=== PATIENT | female | born 1935 | race Caucasian/White ===

== ENCOUNTER 2017-07-03 13:14 | Emergency (ER) | payer MEDICARE, OTHER, MEDICAID ==
[~2017-07-03] VITALS: Ht 152.4 cm; Wt 74.8 kg
[~2017-07-03 13:14] MED LIST: AC500T PO; BSC10SU PR; CALC1TAB88 PO; CEFD300C3 PO; CEFU250T11 PO; CLC500CT PO; CRAN200C PO; Cranberry Extract PO; FEXO180T PO; FURO40TA4 PO; HYDR-34 PO; KCL20TCR PO; KETO5DRO2 OU; LEVO750T24 GT; LISI20TA PO; MAGN-77 PO; MENT71OI TP; MULT-1029 PO; MULT-166 PO; NF-ESOM40C PO; NF-TYLARTH PO; OMEG1200 PO; OMG1KC PO; ONDN4T PO; POTA20TA15 PO; SCR1T1 PO; SENN1TAB76 PO; SUCR1TAB PO; TRAM50TA2 PO; VIT1CAPS5 PO; VITA200T7 PO
--- NOTE | 2017-07-03 14:21 | ED General ---
General Chief Complaint: Rect Problems Stated Complaint: WEAKNESS AND BLEEDING, POSS HEMORRHOID Nursing Triage Note: c/o rectal bleeding x 3 days. Reports weakness and weight loss. Hx of hemorrhoids. Nursing Sepsis Screen: No Definite Risk Source of Information: Patient, Family Exam Limitations: No Limitations History of Present Illness Time Seen by Provider: 13:30 Initial Comments 82-year-old female patient presents to the emergency department for complaints of 3 day onset of rectal bleeding. Today feels weak. Patient also reports approximately 60-70 pound weight loss over the last 2 years. Daughter reports patient has had decreased appetite for approximately 2 years. Does have a h/o hemorrhoids. Denies n/v/d, constipation, or abdominal pain. Timing/Duration: 2-3 Days, Constant Modifying Factors: worse with Other (worse with having a BM.) Allergies and Home Medications Allergies Coded Allergies: Sulfa (Sulfonamide Antibiotics) (Verified Allergy, Severe, RASH, 09/24/14) codeine (Verified Adverse Reaction, Mild, NAUSEA, 09/24/14) PATIENT REPORTS TAKING AT 18 YEARS OF AGE AND CAUSING NAUSEA. aspirin (Verified Adverse Reaction, Unknown, STOMACH ULCERS, 09/24/14) Home Medications Acetaminophen 650 Mg Cplt, 1,300 MG PO Q8H PRN for PAIN, (Reported) TAKES 2 (650MG) CAPSULE Calcium Carbonate/Vitamin D3 1 Each Tablet, 1 TAB PO BID, (Reported) Cefdinir 300 Mg Capsule, 300 MG PO BID, #20 Ref 0 Prescribed by: JENNIFFER PAULSON on 05/09/16 1219 Cephalexin 500 Mg Capsule, 500 MG PO TID, #15 Ref 0 Prescribed by: GIUSEPPE MORRIS on 07/04/1755 Esomeprazole Mag Trihydrate 40 Mg Capsule.dr, 40 MG PO DAILY, (Reported) Fexofenadine Hcl 180 Mg Tablet, 180 MG PO DAILY PRN for ALLERGY SYMPTOMS, ( Reported) NEEDED FOR ALLERGY SYMPTOMS Furosemide 40 Mg Tablet, 40 MG PO DAILY, (Reported) Hydrocortisone/Pramoxine 30 Gm Cream.appl, 30 GM RC UD, #1 Ref 0 apply to hemorrhoids QID x7-10d Prescribed by: GIUSEPPE MORRIS on 07/04/1755 Lisinopril 20 Mg Tablet, 20 MG PO DAILY, (Reported) Mu-Vits-Min Th/Lycopene/Lutein 1 Each Tablet, 1 TAB PO DAILY, (Reported) [place]-3/Dha/Epa/Fish Oil 1,200 Mg Capsule, 1,200 MG PO BID, (Reported) Ondansetron Hcl 4 Mg Tab, 4 MG PO Q8H PRN for NAUSEA/VOMITING, (Reported) Sucralfate 1 G Tablet, 1 GM PO QID, (Reported) Tramadol Hcl 50 Mg Tab, 50 MG PO Q6H PRN for PAIN, (Reported) Vit A/Vit C/Vit E/Zinc/Copper 1 Each Capsule, 1 CAP PO BID, (Reported) [Cranberry Extract] , 300 MG PO DAILY, (Reported) Constitutional: see HPI, No chills, No diaphoresis, No fever, weakness ( fatigue and generalized weakness.), weight loss EENTM: no symptoms reported Respiratory: No cough, No dyspnea on exertion, No phlegm, No short of breath Cardiovascular: No chest pain, No palpitations, No syncope Gastrointestinal: No abdominal pain, No constipation, No diarrhea, No hematemesis, No heartburn, loss of appetite, No melena, No nausea, No vomiting Genitourinary: No decreased output, No dysuria, No frequency, No hematuria, No pain Musculoskeletal: no symptoms reported Skin: no symptoms reported Psychiatric/Neurological: Denies Headache, Denies Numbness, Denies Paresthesia , Denies Tingling, Denies Weakness All Other Systems Reviewed Negative Unless Noted: Yes (Negative excepted noted.) Past Pwbvxmr-Tptods-Gwnnsr Hx Patient Social History Alcohol Use: Denies Use Recreational Drug Use: No Smoking Status: Never a Smoker Recent Foreign Travel: No Contact w/Someone Who Travel: No Recent Infectious Disease Expo: No Recent Hopitalizations: No Immunizations Up To Date Date of Pneumonia Vaccine: Jul 02, 2014 Date of Influenza Vaccine: Jun 29, 2014 Surgeries History of Surgeries: Yes (Bilateral knees, CYST REMOVAL FROM BACK ) Surgeries: Appendectomy, Gallbladder, Orthopedic Respiratory History of Respiratory Disorde: Yes Respiratory Disorders: Chronic Bronchitis Cardiovascular History of Cardiac Disorders: Yes Cardiac Disorders: Hypertension Neurological History of Neurological Disord: No Reproductive System Hx Reproductive Disorders: Yes (RH(-) X2 BABIES THAT PASSED ONE STILLBIRTH AND ONE PASSED 24HRS OLD) Sexually Transmitted Disease: No HIV/AIDS: No Female Reproductive Disorders: Denies Genitourinary Genitourinary Disorders: Kidney Infection Gastrointestinal History of Gastrointestinal Di: Yes (Hernia; diverticulitis; stomach ulcers) Gastrointestinal Disorders: Chronic Constipation, Diverticulosis Musculoskeletal History of Musculoskeletal Dis: Yes Musculoskeletal Disorders: Arthritis, Fractures Endocrine History of Endocrine Disorders: No HEENT HEENT Disorders: Cataract, Macular Degeneration Loss of Vision: Bilateral Hearing Impairment: Denies Cancer History of Cancer: No Psychosocial History of Psychiatric Problem: No Behavioral Health Disorders: Anxiety, Depression Integumentary History of Skin or Integumenta: No Blood Transfusions History of Blood Disorders: No Adverse Reaction to a Blood Tr: No Reviewed Nursing Assessment Reviewed/Agree w Nursing PMH: Yes Family Medical History Significant Family History: No Pertinent Family Hx Family Medial History: Cancer 03 MOTHER (LUNG CANCER) Cataract 03 MOTHER (MACULAR DEGENERATION) Family history: Arthritis Family history: Hypertension 09 BROTHER (OLDEST BROTHER) Visual impairment 03 MOTHER (CATARACTS AND MACULAR DEGENERATION) No Family History of: Abdominal aortic aneurysm [place]'s disease Alcoholism Aphasia Cancer of colon Chest pain Congenital heart disease Congestive heart failure Cystic fibrosis Dementia Dysphagia Family history: Allergy Family history: Alzheimer's disease Family history: Asthma Family history: Breast disease Family history: Cardiovascular disease Family history: Coronary thrombosis Family history: Diabetes mellitus Family history: Gastrointestinal disease Family history: Glaucoma Family history: Osteoporosis Family history: Thyroid disorder Headache Hearing loss Heart disease Hereditary disease History of - anemia History of - disorder History of - respiratory disease History of drug abuse Human immunodeficiency virus (HIV) seropositivity Hypercholesterolemia Infertile Kidney disease Malignant neoplasm of lung Myocardial infarction Parkinson's disease Prostate cancer Psychotic disorder Seizure disorder Stroke Tuberculosis Physical Exam Vital Signs Vital Sign - Last 12Hours 07/03/17 13:37 Temp 98.1 Pulse 66 Resp 18 B/P (MAP) 125/61 Pulse Ox 95 O2 Delivery Room Air Capillary Refill : Less Than 3 Seconds General Appearance: No Apparent Distress, WD/WN HEENT: PERRL/EOMI, Pharynx Normal, Other (oral mucosa dry) Neck: Normal Inspection, Supple Respiratory: Lungs Clear, Normal Breath Sounds, No Accessory Muscle Use, No Respiratory Distress Cardiovascular: Regular Rate, Rhythm, No Edema, No Murmur, Normal Peripheral Pulses Gastrointestinal: Normal Bowel Sounds, No Organomegaly, Non Tender, Soft, No Distended Rectal: Normal Rectal Tone, Heme Positive Stool, Hemorrhoids Back: Normal Inspection, No CVA Tenderness Extremity: Normal Capillary Refill, No Calf Tenderness, Pedal Edema (2+ pedal edema bilaterally to the proximal tibia) Neurologic/Psychiatric: Alert, Oriented x3, Normal Mood/Affect Skin: Normal Color, Warm/Dry Progress/Results/Core Measures Results/Orders Lab Results Laboratory Tests Test 07/03/17 14:20 07/03/17 16:24 Range/Units White Blood Count 7.8 4.3-11.0 10^3/uL Red Blood Count 3.37 L 4.35-5.85 10^6/uL Hemoglobin 10.6 L 11.5-16.0 G/DL Hematocrit 32 L 35-52 % Mean Corpuscular Volume 96 80-99 FL Mean Corpuscular Hemoglobin 32 25-34 PG Mean Corpuscular Hemoglobin Concent 33 32-36 G/DL Red Cell Distribution Width 16.0 H 10.0-14.5 % Platelet Count 247 130-400 10^3/uL Mean Platelet Volume 9.4 7.4-10.4 FL Neutrophils (%) (Auto) 66 42-75 % Lymphocytes (%) (Auto) 20 12-44 % Monocytes (%) (Auto) 8 0-12 % Eosinophils (%) (Auto) 6 0-10 % Basophils (%) (Auto) 1 0-10 % Neutrophils # (Auto) 5.1 1.8-7.8 X 10^3 Lymphocytes # (Auto) 1.6 1.0-4.0 X 10^3 Monocytes # (Auto) 0.6 0.0-1.0 X 10^3 Eosinophils # (Auto) 0.5 H 0.0-0.3 10^3/uL Basophils # (Auto) 0.1 0.0-0.1 10^3/uL Prothrombin Time 13.0 12.2-14.7 SEC INR Comment 1.0 0.8-1.4 Activated Partial Thromboplast Time 38 H 24-35 SEC Sodium Level 136 135-145 MMOL/L Potassium Level 4.9 3.6-5.0 MMOL/L Chloride Level 113 H 98-107 MMOL/L Carbon Dioxide Level 16 L 21-32 MMOL/L Anion Gap 7 5-14 MMOL/L Blood Urea Nitrogen 59 H 7-18 MG/DL Creatinine 1.80 H 0.60-1.30 MG/DL Estimat Glomerular Filtration Rate 27 BUN/Creatinine Ratio 33 Glucose Level 94 70-105 MG/DL Calcium Level 8.8 8.5-10.1 MG/DL Total Bilirubin 0.2 0.1-1.0 MG/DL Aspartate Amino Transf (AST/SGOT) 18 5-34 U/L Alanine Aminotransferase (ALT/SGPT) 16 0-55 U/L Alkaline Phosphatase 64 40-136 U/L Total Protein 5.6 L 6.4-8.2 GM/DL Albumin 2.9 L 3.2-4.5 GM/DL Urine Color RED H Urine Clarity VERY CLOUDY H Urine pH 5 5-9 Urine Specific [place] 1.015 L 1.016-1.022 Urine Protein 2+ H NEGATIVE Urine Glucose (UA) NEGATIVE NEGATIVE Urine Ketones NEGATIVE NEGATIVE Urine Nitrite NEGATIVE NEGATIVE Urine Bilirubin NEGATIVE NEGATIVE Urine Urobilinogen NORMAL NORMAL MG/DL Urine Leukocyte Esterase 2+ H NEGATIVE Urine RBC (Auto) 5+ H NEGATIVE Urine RBC TNTC H /HPF Urine WBC 5-10 H /HPF Urine Crystals NONE /LPF Urine Bacteria FEW H /HPF Urine Casts NONE /LPF Urine Mucus NEGATIVE /LPF Urine Culture Indicated YES My Orders Orders - GIUSEPPE MORRIS Cbc With Automated Diff (07/03/17 13:44) Comprehensive Metabolic Panel (07/03/17 13:44) Protime With Inr (07/03/17 13:44) Partial Thromboplastin Time (07/03/17 13:44) Saline Lock/Iv-Start (07/03/17 13:44) Ns Iv 1000 Ml (Sodium Chloride 0.9%) (07/03/17 14:50) Ua Culture If Indicated (07/03/17 15:06) Fecal Occult Bedside (07/03/17 15:18) General/Regular (07/03/17 Dinner) Urine Culture (07/03/17 16:24) Medications Given in ED Current Medications Medications Dose Ordered Sig/Uniuqe Route Start Time Stop Time Status Last Admin Dose Admin Sodium Chloride 1,000 ml @ 0 mls/hr Q0M ONCE IV 07/03/17 14:50 07/03/17 14:51 DC 07/03/17 15:22 0 MLS/HR Vital Signs/I&O Vital Sign - Last 12Hours 07/03/17 07/03/17 13:37 17:20 Temp 98.1 98.1 Pulse 66 68 Resp 18 16 B/P (MAP) 125/61 Pulse Ox 95 95 O2 Delivery Room Air Blood Pressure Mean: 82 Departure Communication (Admissions) Progress Notes All laboratory findings discussed with the patient and family. Patient reports better with IV fluids. Patient was recently started on Mobic 15 mg once daily and Mobic 7.5 mg once daily by Dr. Garcia approximately 2 wks ago. Daughter reports noticing symptoms have gotten worse since starting the mobic. Patient does have a history of upper GI bleed and gastric ulcers. Patient is not able to use motrin or aleve due to GI upset and poor appetite. plan for discontinuing mobic and using tylenol for pain. Impression Impression: Primary Impression: Rectal bleeding Additional Impressions: Hemorrhoids Qualified Codes: K64.9 - Unspecified hemorrhoids Volume depletion Urinary tract infection Qualified Codes: N30.00 - Acute cystitis without hematuria Disposition: HOME, SELF-CARE Condition: Improved Departure-Patient Inst. Decision time for Depature: 15:56 Referrals: ALBAN HERNANDEZ FLOYD R MD (PCP/Family) Primary Care Physician Patient Instructions: Hemorrhoids (DC) Add. Discharge Instructions: All discharge instructions reviewed with patient and/or family. Voiced understanding. Medications as directed. Drink plenty of fluids. Colace stool softeners as needed for constipation. Keep stools on the softer side. Follow- up with Dr. Garcia tomorrow as previously scheduled for a recheck and repeat labs. Follow-up with Dr. Hernandez as an outpatient for possible need of a colonoscopy. Return to the emergency department for worsened bleeding, rectal pain, fever, dizziness, shortness of air, vomiting, vomiting blood, or any other concerns. Scripts Cephalexin (Cephalexin) 500 Mg Capsule 500 MG PO TID, #15 CAP 0 Refills Prov: GIUSEPPE MORRIS 07/04/17 Hydrocortisone/Pramoxine (Analpram Hc 2.5% Cream) 30 Gm Cream.appl 30 GM RC UD, #1 APPLIC 0 Refills apply to hemorrhoids QID x7-10d Prov: GIUSEPPE MORRIS 07/04/17 GIUSEPPE MORRIS Jul 03, 2017 14:20
[2017-07-03 14:30] LABS: BASOPHILS # (AUTO) 0.1 10^3/uL (0.0-0.1); BASOPHILS % (AUTO) 1 % (0-10); EOSINOPHILS # (AUTO) 0.5 10^3/uL (0.0-0.3); EOSINOPHILS % (AUTO) 6 % (0-10); LYMPHOCYTES # (AUTO) 1.6 X 10^3 (1.0-4.0); LYMPHOCYTES % (AUTO) 20 % (12-44); MEAN CORPUSCULAR HEMOGLOBIN 32 PG (25-34); MEAN CORPUSCULAR HGB CONC 33 G/DL (32-36); MEAN CORPUSCULAR VOLUME 96 FL (80-99); MEAN PLATELET VOLUME 9.4 FL (7.4-10.4); MONOCYTES # (AUTO) 0.6 X 10^3 (0.0-1.0); MONOCYTES % (AUTO) 8 % (0-12); NEUTROPHILS # (AUTO) 5.1 X 10^3 (1.8-7.8); NEUTROPHILS % (AUTO) 66 % (42-75); PLATELET COUNT 247 10^3/uL (130-400); RED BLOOD COUNT 3.37 10^6/uL (4.35-5.85); WHITE BLOOD COUNT 7.8 10^3/uL (4.3-11.0)
[2017-07-03 14:48] LABS: ALBUMIN 2.9 GM/DL (3.2-4.5); BILIRUBIN,TOTAL 0.2 MG/DL (0.1-1.0); CALCIUM 8.8 MG/DL (8.5-10.1); CREATININE SERUM 1.8 MG/DL (0.60-1.30); POTASSIUM 4.9 MMOL/L (3.6-5.0); TOTAL PROTEIN 5.6 GM/DL (6.4-8.2)
[2017-07-03] MEDS ORDERED: NS IV 1000 ML 1,000 ML IV ONE (14:50)
[2017-07-03] MEDS ORDERED: HC A30CR RC (15:58)
[2017-07-03 16:32] LABS: BILIRUBIN,URINE NEGATIVE (NEGATIVE); KETONES,URINE NEGATIVE (NEGATIVE); LEUKOCYTE ESTERASE ,URINE 2+ (NEGATIVE); NITRITE,URINE NEGATIVE (NEGATIVE); PH,URINE 5 (5-9); PROTEIN,URINE 2+ (NEGATIVE); UROBILINOGEN,URINE NORMAL (NORMAL)
[2017-07-03] MEDS ORDERED: CEPH500C PO (16:46)
[2017-07-03 17:20] VITALS: BP 126/70
[2017-07-04] MEDS ORDERED: HC A30CR RC (00:56)
[2017-07-04] MEDS ORDERED: CEPH500C PO (00:56)
== END 2017-07-03 17:20 | disposition home or self-care (01) ==
LOC: EDUNIT# 13:14 → ER 13:16
DX: K62.5 Hemorrhage of anus and rectum (principal); K64.9 Unspecified hemorrhoids; E86.9 Volume depletion, unspecified; N39.0 Urinary tract infection, site not specified; F41.9 Anxiety disorder, unspecified; F32.9 Major depressive disorder, single episode, unspecified; I10 Essential (primary) hypertension; Z85.118 Personal history of other malignant neoplasm of bronchus and lung; Z87.81 Personal history of (healed) traumatic fracture; Z90.49 Acquired absence of other specified parts of digestive tract
CPT/HCPCS: 36415; 80053; 81000; 85025; 85610; 85730; 87077; 87088; 87186

== ENCOUNTER 2017-07-15 14:40 | Emergency (ER) | payer MEDICARE, OTHER, MEDICAID ==
[~2017-07-15] VITALS: Ht 152.4 cm; Wt 73.5 kg
[~2017-07-15 14:40] MED LIST changes: +CEPH500C PO; +HC A30CR RC
[2017-07-15 15:46] LABS: BILIRUBIN,URINE NEGATIVE (NEGATIVE); KETONES,URINE NEGATIVE (NEGATIVE); LEUKOCYTE ESTERASE ,URINE 2+ (NEGATIVE); NITRITE,URINE NEGATIVE (NEGATIVE); PH,URINE 5 (5-9); PROTEIN,URINE 2+ (NEGATIVE); UROBILINOGEN,URINE NORMAL (NORMAL)
[2017-07-15] MEDS ORDERED: NS IV 1000 ML 1,000 ML IV SCH (16:00)
--- NOTE | 2017-07-15 16:07 | ED GU-Female ---
General Chief Complaint: -Female Stated Complaint: KIDNEY ISSUES Nursing Triage Note: ARRIVED VIA WC TO ROOM 02. COMPLAINS OF FEELING LIKE SHE NEEDS TO GO TO THE BATHROOM BUT CANT. STATES SHE CALLED HER DR WHO PRESCRIBED HER PYRIDIUM. HAS A HX OF UTI'S. Nursing Sepsis Screen: No Definite Risk Source: patient, family Exam Limitations: no limitations History of Present Illness Time seen by provider: 16:02 Initial Comments This 82-year-old white female presents with a complaint of recurrent dysuria. The patient has had long-standing episodes of resistant urinary tract infections. Patient has been having chills with her dysuria. She denies flank pain, nausea , vomiting, headache, stiff neck, photophobia, palpitations or chest pain, or lateralizing localizing neurologic complaints. Allergies and Home Medications Allergies Coded Allergies: Sulfa (Sulfonamide Antibiotics) (Verified Allergy, Severe, RASH, 09/24/14) codeine (Verified Adverse Reaction, Mild, NAUSEA, 09/24/14) PATIENT REPORTS TAKING AT 16 YEARS OF AGE AND CAUSING NAUSEA. aspirin (Verified Adverse Reaction, Unknown, STOMACH ULCERS, 09/24/14) Home Medications Acetaminophen 650 Mg Cplt, 1,300 MG PO Q8H PRN for PAIN, (Reported) TAKES 2 (650MG) CAPSULE Calcium Carbonate/Vitamin D3 1 Each Tablet, 1 TAB PO BID, (Reported) Cefdinir 300 Mg Capsule, 300 MG PO BID, #20 Ref 0 Prescribed by: JENNIFFER PAULSON on 05/09/16 1219 Cephalexin 500 Mg Capsule, 500 MG PO TID, #15 Ref 0 Prescribed by: GIUSEPPE MORRIS on 07/04/17 005 Esomeprazole Mag Trihydrate 40 Mg Capsule.dr, 40 MG PO DAILY, (Reported) Fexofenadine Hcl 180 Mg Tablet, 180 MG PO DAILY PRN for ALLERGY SYMPTOMS, ( Reported) NEEDED FOR ALLERGY SYMPTOMS Furosemide 40 Mg Tablet, 40 MG PO DAILY, (Reported) Hydrocortisone/Pramoxine 30 Gm Cream.appl, 30 GM RC UD, #1 Ref 0 apply to hemorrhoids QID x7-10d Prescribed by: GIUSEPPE MORRIS on 07/04/1755 Lisinopril 20 Mg Tablet, 20 MG PO DAILY, (Reported) Mu-Vits-Min Th/Lycopene/Lutein 1 Each Tablet, 1 TAB PO DAILY, (Reported) [place]-3/Dha/Epa/Fish Oil 1,200 Mg Capsule, 1,200 MG PO BID, (Reported) Ondansetron Hcl 4 Mg Tab, 4 MG PO Q8H PRN for NAUSEA/VOMITING, (Reported) Sucralfate 1 G Tablet, 1 GM PO QID, (Reported) Tramadol Hcl 50 Mg Tab, 50 MG PO Q6H PRN for PAIN, (Reported) Vit A/Vit C/Vit E/Zinc/Copper 1 Each Capsule, 1 CAP PO BID, (Reported) [Cranberry Extract] , 300 MG PO DAILY, (Reported) Constitutional: chills, No fever EENTM: No ear pain Respiratory: No cough Cardiovascular: No chest pain Gastrointestinal: no symptoms reported Genitourinary: no symptoms reported, burning, dysuria Musculoskeletal: No no symptoms reported Skin: No no symptoms reported Psychiatric/Neurological: Denies No Symptoms Reported Endocrine: Denies No Symptoms Reported Hematologic/Lymphatic: Denies No Symptoms Reported Past Cnzbbla-Vtsznz-Cnthan Hx Patient Social History Alcohol Use: Denies Use Recreational Drug Use: No Smoking Status: Never a Smoker Recent Foreign Travel: No Contact w/Someone Who Travel: No Recent Infectious Disease Expo: No Recent Hopitalizations: No Immunizations Up To Date Date of Pneumonia Vaccine: Jul 02, 2014 Date of Influenza Vaccine: Jun 29, 2014 Surgeries History of Surgeries: Yes (Bilateral knees, CYST REMOVAL FROM BACK ) Surgeries: Appendectomy, Gallbladder, Orthopedic Respiratory History of Respiratory Disorde: Yes Respiratory Disorders: Chronic Bronchitis Cardiovascular History of Cardiac Disorders: Yes Cardiac Disorders: Hypertension Neurological History of Neurological Disord: No Reproductive System Hx Reproductive Disorders: Yes (RH(-) X2 BABIES THAT PASSED ONE STILLBIRTH AND ONE PASSED 24HRS OLD) Sexually Transmitted Disease: No HIV/AIDS: No Female Reproductive Disorders: Denies Genitourinary Genitourinary Disorders: Kidney Infection Gastrointestinal History of Gastrointestinal Di: Yes (Hernia; diverticulitis; stomach ulcers) Gastrointestinal Disorders: Chronic Constipation, Diverticulosis Musculoskeletal History of Musculoskeletal Dis: Yes Musculoskeletal Disorders: Arthritis, Fractures Endocrine History of Endocrine Disorders: No HEENT HEENT Disorders: Cataract, Macular Degeneration Loss of Vision: Bilateral Hearing Impairment: Denies Cancer History of Cancer: No Psychosocial History of Psychiatric Problem: No Behavioral Health Disorders: Anxiety, Depression Integumentary History of Skin or Integumenta: No Blood Transfusions History of Blood Disorders: No Adverse Reaction to a Blood Tr: No Reviewed Nursing Assessment Reviewed/Agree w Nursing PMH: Yes Family Medical History Significant Family History: No Pertinent Family Hx Family Medial History: Cancer 03 MOTHER (LUNG CANCER) Cataract 03 MOTHER (MACULAR DEGENERATION) Family history: Arthritis Family history: Hypertension 09 BROTHER (OLDEST BROTHER) Visual impairment 03 MOTHER (CATARACTS AND MACULAR DEGENERATION) No Family History of: Abdominal aortic aneurysm [place]'s disease Alcoholism Aphasia Cancer of colon Chest pain Congenital heart disease Congestive heart failure Cystic fibrosis Dementia Dysphagia Family history: Allergy Family history: Alzheimer's disease Family history: Asthma Family history: Breast disease Family history: Cardiovascular disease Family history: Coronary thrombosis Family history: Diabetes mellitus Family history: Gastrointestinal disease Family history: Glaucoma Family history: Osteoporosis Family history: Thyroid disorder Headache Hearing loss Heart disease Hereditary disease History of - anemia History of - disorder History of - respiratory disease History of drug abuse Human immunodeficiency virus (HIV) seropositivity Hypercholesterolemia Infertile Kidney disease Malignant neoplasm of lung Myocardial infarction Parkinson's disease Prostate cancer Psychotic disorder Seizure disorder Stroke Tuberculosis Physical Exam Vital Signs Vital Sign - Last 12Hours 07/15/17 14:50 Temp 97.0 Pulse 69 Resp 18 B/P (MAP) 100/48 Pulse Ox 98 Capillary Refill : Less Than 3 Seconds General Appearance: WD/WN, no apparent distress HEENT: PERRL/EOMI, normal ENT inspection Neck: full range of motion, supple Cardiovascular: regular rate, rhythm, no murmur Respiratory: chest non-tender, lungs clear, normal breath sounds Gastrointestinal: normal bowel sounds, non tender, soft Back: normal inspection Extremities: normal range of motion, non-tender, normal inspection Neurologic/Psychiatric: no motor/sensory deficits, alert, normal mood/affect Skin: normal color, warm/dry Focused Exam Evaluation Lactate Level Laboratory Tests 07/15/17 14:20: Lactic Acid Level 0.68 Lactic Acid Level Laboratory Tests Test 07/15/17 14:20 Lactic Acid Level 0.68 MMOL/L (0.50-2.00) Progress/Results/Core Measures Results/Orders Lab Results Laboratory Tests Test 07/15/17 14:20 07/15/17 15:32 Range/Units White Blood Count 8.8 4.3-11.0 10^3/uL Red Blood Count 2.77 L 4.35-5.85 10^6/uL Hemoglobin 8.8 L 11.5-16.0 G/DL Hematocrit 27 L 35-52 % Mean Corpuscular Volume 96 80-99 FL Mean Corpuscular Hemoglobin 32 25-34 PG Mean Corpuscular Hemoglobin Concent 33 32-36 G/DL Red Cell Distribution Width 17.2 H 10.0-14.5 % Platelet Count 265 130-400 10^3/uL Mean Platelet Volume 9.7 7.4-10.4 FL Neutrophils (%) (Auto) 70 42-75 % Lymphocytes (%) (Auto) 13 12-44 % Monocytes (%) (Auto) 10 0-12 % Eosinophils (%) (Auto) 6 0-10 % Basophils (%) (Auto) 1 0-10 % Neutrophils # (Auto) 6.2 1.8-7.8 X 10^3 Lymphocytes # (Auto) 1.2 1.0-4.0 X 10^3 Monocytes # (Auto) 0.9 0.0-1.0 X 10^3 Eosinophils # (Auto) 0.5 H 0.0-0.3 10^3/uL Basophils # (Auto) 0.1 0.0-0.1 10^3/uL Sodium Level 133 L 135-145 MMOL/L Potassium Level 4.6 3.6-5.0 MMOL/L Chloride Level 110 H 98-107 MMOL/L Carbon Dioxide Level 13 L 21-32 MMOL/L Anion Gap 10 5-14 MMOL/L Blood Urea Nitrogen 71 H 7-18 MG/DL Creatinine 5.12 H 0.60-1.30 MG/DL Estimat Glomerular Filtration Rate 8 BUN/Creatinine Ratio 14 Glucose Level 101 70-105 MG/DL Lactic Acid Level 0.68 0.50-2.00 MMOL/L Calcium Level 8.4 L 8.5-10.1 MG/DL Total Bilirubin 0.2 0.1-1.0 MG/DL Aspartate Amino Transf (AST/SGOT) 17 5-34 U/L Alanine Aminotransferase (ALT/SGPT) 19 0-55 U/L Alkaline Phosphatase 61 40-136 U/L Total Protein 5.5 L 6.4-8.2 GM/DL Albumin 2.8 L 3.2-4.5 GM/DL Urine Color DUONG H Urine Clarity SLIGHTLY CLOUDY Urine pH 5 5-9 Urine Specific [place] 1.025 H 1.016-1.022 Urine Protein 2+ H NEGATIVE Urine Glucose (UA) NEGATIVE NEGATIVE Urine Ketones NEGATIVE NEGATIVE Urine Nitrite NEGATIVE NEGATIVE Urine Bilirubin NEGATIVE NEGATIVE Urine Urobilinogen NORMAL NORMAL MG/DL Urine Leukocyte Esterase 2+ H NEGATIVE Urine RBC (Auto) 5+ H NEGATIVE Urine RBC 0-2 /HPF Urine WBC 2-5 /HPF Urine Crystals NONE /LPF Urine Bacteria TRACE /HPF Urine Casts NONE /LPF Urine Mucus SMALL H /LPF Urine Culture Indicated YES My Orders Orders - JIGNA KOO MD Cbc With Automated Diff (07/15/17 16:00) Comprehensive Metabolic Panel (07/15/17 16:00) Blood Culture (07/15/17 16:00) Lactic Acid Analyzer (07/15/17 16:00) Ns Iv 1000 Ml (Sodium Chloride 0.9%) (07/15/17 16:00) Blood Culture (07/15/17 17:08) Nitrofurantoin Capsule,Macro (Macrobid C (07/15/17 17:30) Medications Given in ED Current Medications Medications Dose Ordered Sig/Unique Route Start Time Stop Time Status Last Admin Dose Admin Nitrofurantoin Macrocrystals 100 mg ONCE ONCE PO 07/15/17 17:30 07/15/17 17:31 DC 07/15/17 17:30 100 MG Vital Signs/I&O Vital Sign - Last 12Hours 07/15/17 14:50 Temp 97.0 Pulse 69 Resp 18 B/P (MAP) 100/48 Pulse Ox 98 Blood Pressure Mean: 65 Progress Note : Time: 17:18 Progress Note Patient's UA demonstrated findings consistent with urinary tract infection. The patient is allergic to sulfa. She's recently been on cephalosporins and quinolones without resolution of her urinary tract infection. We'll initiate Macrobid for the patient and have patient follow-up closely with her primary care physician in the next 24 hours. Departure Impression Impression: Primary Impression: Urinary tract infection Qualified Codes: N30.00 - Acute cystitis without hematuria Disposition: 01 HOME, SELF-CARE Condition: Improved Departure-Patient Inst. Decision time for Depature: 17:19 Referrals: MADELINE GARCIA MD (PCP/Family) Primary Care Physician Patient Instructions: Urinary Tract Infection, Adult (DC) Add. Discharge Instructions: Macrobid as prescribed. Close follow-up Dr. Garcia. Return if any problems or questions. All discharge instructions reviewed with patient and/or family. Voiced understanding. JIGNA KOO MD Jul 15, 2017 16:07
[2017-07-15 16:45] LABS: BASOPHILS # (AUTO) 0.1 10^3/uL (0.0-0.1); BASOPHILS % (AUTO) 1 % (0-10); EOSINOPHILS # (AUTO) 0.5 10^3/uL (0.0-0.3); EOSINOPHILS % (AUTO) 6 % (0-10); LYMPHOCYTES # (AUTO) 1.2 X 10^3 (1.0-4.0); LYMPHOCYTES % (AUTO) 13 % (12-44); MEAN CORPUSCULAR HEMOGLOBIN 32 PG (25-34); MEAN CORPUSCULAR HGB CONC 33 G/DL (32-36); MEAN CORPUSCULAR VOLUME 96 FL (80-99); MEAN PLATELET VOLUME 9.7 FL (7.4-10.4); MONOCYTES # (AUTO) 0.9 X 10^3 (0.0-1.0); MONOCYTES % (AUTO) 10 % (0-12); NEUTROPHILS # (AUTO) 6.2 X 10^3 (1.8-7.8); NEUTROPHILS % (AUTO) 70 % (42-75); PLATELET COUNT 265 10^3/uL (130-400); RED BLOOD COUNT 2.77 10^6/uL (4.35-5.85); RED CELL DISTRIBUTION WIDTH 17.2 % (10.0-14.5); WHITE BLOOD COUNT 8.8 10^3/uL (4.3-11.0)
[2017-07-15 17:07] LABS: ALBUMIN 2.8 GM/DL (3.2-4.5); BILIRUBIN,TOTAL 0.2 MG/DL (0.1-1.0); CALCIUM 8.4 MG/DL (8.5-10.1); CREATININE SERUM 5.12 MG/DL (0.60-1.30); POTASSIUM 4.6 MMOL/L (3.6-5.0); TOTAL PROTEIN 5.5 GM/DL (6.4-8.2)
[2017-07-15] MEDS ORDERED: NITROFURANTOIN 100 MG (MACROBID) CAPSULE PO ONE (17:30)
[2017-07-15 17:45] VITALS: BP 121/78
== END 2017-07-15 17:45 | disposition home or self-care (01) ==
LOC: EDUNIT# 14:40 → ER 14:42
DX: N39.0 Urinary tract infection, site not specified (principal); F41.9 Anxiety disorder, unspecified; F32.9 Major depressive disorder, single episode, unspecified; I10 Essential (primary) hypertension; J42 Unspecified chronic bronchitis; Z90.49 Acquired absence of other specified parts of digestive tract; Z80.1 Family history of malignant neoplasm of trachea, bronchus and lung
CPT/HCPCS: 36415; 51701; 80053; 81000; 83605; 85025; 87040; 87088; 96360

== ENCOUNTER 2017-07-19 08:44 | Inpatient (IN) | payer MEDICARE, OTHER, MEDICAID ==
[2017-07-19] VITALS (10 sets, daily range): BP systolic 100–129; BP diastolic 48–58
[~2017-07-19] VITALS: Ht 152.4 cm; Wt 86.2 kg
[2017-07-19] MEDS ORDERED: LACTATED RINGERS 1,000 ML IV ONE ×2 (09:17→11:24)
[2017-07-19 09:26] LABS: KETONES,URINE 1+ (NEGATIVE); LEUKOCYTE ESTERASE ,URINE 3+ (NEGATIVE); NITRITE,URINE POSITIVE (NEGATIVE); PH,URINE 8 (5-9); PROTEIN,URINE 2+ (NEGATIVE); UROBILINOGEN,URINE 1 MG/DL (NORMAL)
[2017-07-19 09:50] LABS: BILIRUBIN,URINE 1+ (NEGATIVE); SQUAMOUS EPITHELIAL CELL,UR 0-2 /HPF
[2017-07-19 09:58] LABS: BASOPHILS % (AUTO) 1 % (0-10); EOSINOPHILS # (AUTO) 0.4 10^3/uL (0.0-0.3); EOSINOPHILS % (AUTO) 5 % (0-10); LYMPHOCYTES # (AUTO) 0.7 X 10^3 (1.0-4.0); LYMPHOCYTES % (AUTO) 9 % (12-44); MEAN CORPUSCULAR HEMOGLOBIN 32 PG (25-34); MEAN CORPUSCULAR HGB CONC 33 G/DL (32-36); MEAN CORPUSCULAR VOLUME 98 FL (80-99); MONOCYTES # (AUTO) 0.7 X 10^3 (0.0-1.0); MONOCYTES % (AUTO) 9 % (0-12); NEUTROPHILS % (AUTO) 77 % (42-75); PLATELET COUNT 236 10^3/uL (130-400); RED BLOOD COUNT 2.53 10^6/uL (4.35-5.85); RED CELL DISTRIBUTION WIDTH 17.1 % (10.0-14.5); WHITE BLOOD COUNT 7.9 10^3/uL (4.3-11.0)
--- NOTE | 2017-07-19 10:07 | ED General ---
General Chief Complaint: Neurological Problems Stated Complaint: LACK OF APPETITE,WEAKNESS Nursing Triage Note: ARRIVED VIA WC FROM HOME. PT WAS SEEN LAST WEEK ET DX WITH A UTI. FAMILY STATES SICNE BEING IN THE ER SHE HAS BECAME MOER WEAK. ALSO DOES NOT WANT TO EAT OR DRINK. Nursing Sepsis Screen: No Definite Risk Source of Information: Patient, Family History of Present Illness Time Seen by Provider: 09:15 Initial Comments PT ARRIVES VIA POV --SENT HERE FROM DR. CUMMINS'S OFFICE TO BE ADMITTED PT HAS HAD UTI FOR APPROXIMATELY 2 WEEKS, AND IS BECOMING MORE WEAK HAS HAD DECREASED URINE OUTPUT--VOIDED AT 0630 AND AGAIN PRIOR TO ARRIVAL, BUT SMALL AMOUNTS HAS HAD DECREASED APPETITE AND MINIMAL INTAKE THE LAST FEW DAYS--AT SMALL PIECE OF CANTALOUPE AND A SIP OF WATER WITH HER PILLS THIS AM NO FEVER NO NAUSEA/VOMITING NO ABDOMINAL PAIN HAS CHRONIC BACK PAIN WHICH IS UNCHANGED PT SEEN HERE 07/03/17 FOR C/O RECTAL BLEEDING, WAS DX WITH HEMORRHOIDS AND UTI. PLACED ON KEFLEX. WAS NOTED AT THAT TIME, THAT PT HAS HAD DECREASED APPETITE WITH A 60-70 LB WEIGHT LOSS OVER THE LAST 2 YEARS PT SEEN AGAIN 07/15/17 FOR C/O DYSURIA AND CHILLS AND GIVEN RX FOR MACROBID PT STATES SHE DOES NOT HAVE PAIN OR BURNING ON URINATION, ONLY SYMPTOM IS URINATING SMALL AMOUNTS PCP: DR. CUMMINS Allergies and Home Medications Allergies Coded Allergies: Sulfa (Sulfonamide Antibiotics) (Verified Allergy, Severe, RASH, 09/24/14) codeine (Verified Adverse Reaction, Mild, NAUSEA, 09/24/14) PATIENT REPORTS TAKING AT 16 YEARS OF AGE AND CAUSING NAUSEA. aspirin (Verified Adverse Reaction, Unknown, STOMACH ULCERS, 09/24/14) Home Medications Acetaminophen 650 Mg Cplt, 1,300 MG PO Q8H PRN for PAIN, (Reported) TAKES 2 (650MG) CAPSULE Calcium Carbonate/Vitamin D3 1 Each Tablet, 1 TAB PO BID, (Reported) Cefdinir 300 Mg Capsule, 300 MG PO BID, #20 Ref 0 Prescribed by: JENNIFFER PAULSON on 05/09/16 1219 Cephalexin 500 Mg Capsule, 500 MG PO TID, #15 Ref 0 Prescribed by: GIUSEPPE MORRIS on 07/04/17 0056 Esomeprazole Mag Trihydrate 40 Mg Capsule., 40 MG PO DAILY, (Reported) Fexofenadine Hcl 180 Mg Tablet, 180 MG PO DAILY PRN for ALLERGY SYMPTOMS, ( Reported) NEEDED FOR ALLERGY SYMPTOMS Furosemide 40 Mg Tablet, 40 MG PO DAILY, (Reported) Hydrocortisone/Pramoxine 30 Gm Cream.appl, 30 GM RC UD, #1 Ref 0 apply to hemorrhoids QID x7-10d Prescribed by: GIUSEPPE MORRIS on 07/04/17 0056 Lisinopril 20 Mg Tablet, 20 MG PO DAILY, (Reported) Mu-Vits-Min Th/Lycopene/Lutein 1 Each Tablet, 1 TAB PO DAILY, (Reported) [place]-3/Dha/Epa/Fish Oil 1,200 Mg Capsule, 1,200 MG PO BID, (Reported) Ondansetron Hcl 4 Mg Tab, 4 MG PO Q8H PRN for NAUSEA/VOMITING, (Reported) Sucralfate 1 G Tablet, 1 GM PO QID, (Reported) Tramadol Hcl 50 Mg Tab, 50 MG PO Q6H PRN for PAIN, (Reported) Vit A/Vit C/Vit E/Zinc/Copper 1 Each Capsule, 1 CAP PO BID, (Reported) [Cranberry Extract] , 300 MG PO DAILY, (Reported) Constitutional: see HPI, No chills, No diaphoresis, No dizziness, No fever, malaise, weakness Respiratory: no symptoms reported Cardiovascular: no symptoms reported Gastrointestinal: no symptoms reported, No abdominal pain, No constipation, No diarrhea, No nausea, No vomiting Genitourinary: see HPI, decreased output Musculoskeletal: no symptoms reported, back pain (CHRONIC /STABLE) Skin: no symptoms reported Psychiatric/Neurological: No Symptoms Reported Hematologic/Lymphatic: No Symptoms Reported Immunological/Allergic: no symptoms reported Past Whbdnrf-Ubcvhl-Halmzn Hx Patient Social History Alcohol Use: Denies Use Recreational Drug Use: No Smoking Status: Never a Smoker Recent Foreign Travel: No Contact w/Someone Who Travel: No Recent Infectious Disease Expo: No Recent Hopitalizations: Yes (ER VISITS) Immunizations Up To Date Date of Pneumonia Vaccine: Jul 02, 2014 Date of Influenza Vaccine: Jun 29, 2014 Surgeries History of Surgeries: Yes (Bilateral knees, CYST REMOVAL FROM BACK; VENTRAL HERNIA REPAIR AND SONIYA /RELEASE OF SMALL BOWEL OBSTRUCTION. ) Surgeries: Abdominal, Appendectomy, Gallbladder, Orthopedic Respiratory History of Respiratory Disorde: Yes Respiratory Disorders: Chronic Bronchitis Cardiovascular History of Cardiac Disorders: Yes Cardiac Disorders: Hypertension Neurological History of Neurological Disord: No Reproductive System Hx Reproductive Disorders: Yes (RH(-) X2 BABIES THAT PASSED ONE STILLBIRTH AND ONE PASSED 24HRS OLD) Sexually Transmitted Disease: No HIV/AIDS: No Female Reproductive Disorders: Denies GAMING PIT BOSS History: Menopausal Genitourinary History of Genitourinary Disor: Yes Genitourinary Disorders: Kidney Infection, Bladder Infection Gastrointestinal History of Gastrointestinal Di: Yes (Hernia; diverticulitis; stomach ulcers) Gastrointestinal Disorders: Abdominal Hernia, Gastrointestinal Bleed, Chronic Constipation, Diverticulosis, Hemorrhoids, Ulcer Musculoskeletal History of Musculoskeletal Dis: Yes Musculoskeletal Disorders: Arthritis, Fractures Endocrine History of Endocrine Disorders: No HEENT History of HEENT Disorders: Yes HEENT Disorders: Cataract, Macular Degeneration Loss of Vision: Bilateral Hearing Impairment: Denies Cancer History of Cancer: No Psychosocial History of Psychiatric Problem: Yes Behavioral Health Disorders: Anxiety, Depression Integumentary History of Skin or Integumenta: No Blood Transfusions History of Blood Disorders: No Adverse Reaction to a Blood Tr: No Family Medical History Significant Family History: No Pertinent Family Hx Family Medial History: Cancer 03 MOTHER (LUNG CANCER) Cataract 03 MOTHER (MACULAR DEGENERATION) Family history: Arthritis Family history: Hypertension 09 BROTHER (OLDEST BROTHER) Visual impairment 03 MOTHER (CATARACTS AND MACULAR DEGENERATION) No Family History of: Abdominal aortic aneurysm Huntington's disease Alcoholism Aphasia Cancer of colon Chest pain Congenital heart disease Congestive heart failure Cystic fibrosis Dementia Dysphagia Family history: Allergy Family history: Alzheimer's disease Family history: Asthma Family history: Breast disease Family history: Cardiovascular disease Family history: Coronary thrombosis Family history: Diabetes mellitus Family history: Gastrointestinal disease Family history: Glaucoma Family history: Osteoporosis Family history: Thyroid disorder Headache Hearing loss Heart disease Hereditary disease History of - anemia History of - disorder History of - respiratory disease History of drug abuse Human immunodeficiency virus (HIV) seropositivity Hypercholesterolemia Infertile Kidney disease Malignant neoplasm of lung Myocardial infarction Parkinson's disease Prostate cancer Psychotic disorder Seizure disorder Stroke Tuberculosis Physical Exam Vital Signs Vital Sign - Last 12Hours 07/19/17 09:20 Temp 96.4 Pulse 78 Resp 16 B/P (MAP) 97/33 Pulse Ox 96 Capillary Refill : Less Than 3 Seconds Focused Exam Evaluation Lactate Level Laboratory Tests 07/19/17 09:40: Lactic Acid Level Laboratory Tests Test 07/19/17 09:40 Progress/Results/Core Measures Results/Orders Lab Results Laboratory Tests Test 07/19/17 09:20 07/19/17 09:40 Range/Units Urine Color OTHER H Urine Clarity VERY CLOUDY H Urine pH 8 5-9 Urine Specific [place] 1.015 L 1.016-1.022 Urine Protein 2+ H NEGATIVE Urine Glucose (UA) NEGATIVE NEGATIVE Urine Ketones 1+ H NEGATIVE Urine Nitrite POSITIVE H NEGATIVE Urine Bilirubin 1+ H NEGATIVE Urine Urobilinogen 1 NORMAL MG/DL Urine Leukocyte Esterase 3+ H NEGATIVE Urine RBC (Auto) 3+ H NEGATIVE Urine RBC 0-2 /HPF Urine WBC 10-25 H /HPF Urine Squamous Epithelial Cells 0-2 /HPF Urine Crystals NONE /LPF Urine Bacteria MODERATE H /HPF Urine Casts NONE /LPF Urine Mucus NEGATIVE /LPF Urine Culture Indicated YES White Blood Count 7.9 4.3-11.0 10^3/uL Red Blood Count 2.53 L 4.35-5.85 10^6/uL Hemoglobin 8.1 L 11.5-16.0 G/DL Hematocrit 25 L 35-52 % Mean Corpuscular Volume 98 80-99 FL Mean Corpuscular Hemoglobin 32 25-34 PG Mean Corpuscular Hemoglobin Concent 33 32-36 G/DL Red Cell Distribution Width 17.1 H 10.0-14.5 % Platelet Count 236 130-400 10^3/uL Mean Platelet Volume 10.0 7.4-10.4 FL Neutrophils (%) (Auto) 77 H 42-75 % Lymphocytes (%) (Auto) 9 L 12-44 % Monocytes (%) (Auto) 9 0-12 % Eosinophils (%) (Auto) 5 0-10 % Basophils (%) (Auto) 1 0-10 % Neutrophils # (Auto) 6.0 1.8-7.8 X 10^3 Lymphocytes # (Auto) 0.7 L 1.0-4.0 X 10^3 Monocytes # (Auto) 0.7 0.0-1.0 X 10^3 Eosinophils # (Auto) 0.4 H 0.0-0.3 10^3/uL Basophils # (Auto) 0.0 0.0-0.1 10^3/uL My Orders Orders - ALMA ROSA AGUSTIN DO Saline Lock/Iv-Start (07/19/17 09:17) Cbc With Automated Diff (07/19/17 09:17) Comprehensive Metabolic Panel (07/19/17 09:17) Lactic Acid Analyzer (07/19/17 09:17) Ua Culture If Indicated (07/19/17 09:17) Blood Culture (07/19/17 09:17) Saline Lock/Iv-Start (07/19/17 09:17) Lactated Ringers (Lr 1000 Ml Iv Solution (07/19/17 09:17) Chest 1 View, Ap/Pa Only (07/19/17 09:17) Urine Culture (07/19/17 09:20) Medications Given in ED Current Medications Medications Dose Ordered Sig/Unique Route Start Time Stop Time Status Last Admin Dose Admin Lactated Ringer's 1,000 ml @ 0 mls/hr Q0M ONCE IV 07/19/17 09:17 07/19/17 09:19 DC 07/19/17 09:50 1,000 MLS/HR Vital Signs/I&O Vital Sign - Last 12Hours 07/19/17 09:20 Temp 96.4 Pulse 78 Resp 16 B/P (MAP) 97/33 Pulse Ox 96 Blood Pressure Mean: 54 Departure Departure-Patient Inst. Referrals: MADELINE CUMMINS MD (PCP/Family) Primary Care Physician ALMA ROSA AGUSTIN DO Jul 19, 2017 10:07
[2017-07-19 10:20] LABS: ALBUMIN 2.6 GM/DL (3.2-4.5); BILIRUBIN,TOTAL 0.3 MG/DL (0.1-1.0); CALCIUM 8.5 MG/DL (8.5-10.1); CREATININE SERUM 7.17 MG/DL (0.60-1.30); POTASSIUM 4.6 MMOL/L (3.6-5.0); TOTAL PROTEIN 5.1 GM/DL (6.4-8.2)
--- NOTE | 2017-07-19 10:41 | Diagnostic Imaging Report ---
INDICATION: Chills and lack of appetite x3 weeks Frontal chest obtained at 9:59 a.m. and compared to 09/24/14. Heart is borderline in size. Aorta is tortuous. There is minimal central vascular prominence. There is no focal consolidation or pneumothorax. There is a question of a trace of pleural fluid in the left costophrenic angle. Advanced degenerative changes of both shoulders are again noted. IMPRESSION: Minimal central vascular prominence. Trace of left pleural fluid noted. No definite consolidation or pneumothorax. Dictated by: Dictated on workstation # [id number]
[2017-07-19] MEDS ORDERED: PANTOPRAZOLE 40 MG/10 ML (PROTONIX) VIAL IV ONE (10:45)
[2017-07-19] MEDS ORDERED: cefTRIAXone INJECTION 1,000 MG in NS (IVPB) 50 ML IV ONE (11:00)
[2017-07-19] MEDS ORDERED: LACTATED RINGERS 1,000 ML IV SCH (11:30)
[2017-07-19] MEDS ORDERED: ONDANSETRON 4 MG/2 ML (SDV) Z0FRAN IV PRN (12:00)
[2017-07-19] MEDS ORDERED: CATHETER FLUSH 10 ML SYR IV PRN (12:00)
[2017-07-19] MEDS ORDERED: NS IV 500 ML 500 ML IV SCH (12:00)
[2017-07-19] MEDS: LACTATED RINGERS 1,000 ML IV SCH ×2 (13:01→17:42)
--- NOTE | 2017-07-19 13:25 | History & Physical-Hospitalist ---
HPI History of Present Illness: HPI/Chief Complaint tHE PATIENT IS AN 82-YEAR-OLD WHITE FEMALE ADMITTED FROM THE EMERGENCY ROOM WHERE SHE PRESENTED WITH a chief complaint of generalized weakness. She had been in the emergency room on 07/03 with a three-day history of rectal bleeding. Her hemoglobin was 10.6 at that point in time. Physical exam showed a heme positive stool and evident hemorrhoids. She returned here on 07/15 complaining of burning and dysuria. She gave a history of frequent urinary tract infections which were difficult to treat. UA showed marginal evidence of urinary tract infection and a specific gravity of 1.025. Her creatinine was noted to be 5.12 and her BUN 71. She was placed on Macrodantin. She continued to wane and was seen at Dr. Garcia's office this morning with complaints of poor appetite and fluid intake and rather minimum urinary output. Laboratory today showed her to have a hemoglobin of 8.1. The creatinine had climbed from 5.1 to 27.17. BUN had climbed from 71-82. She was therefore admitted for rehydration and blood transfusion as necessary. Given her age and infirmity she is elected a DO NOT RESUSCITATE status. She was not willing to consider the possibility of dialysis at this time. She appeared confused to me and was not able to give a very good timeline about the onset of this illness. In addition she was unable to confirm how much rectal bleeding had been noted. The plan as discussed with Dr. Valdes from the emergency room was to type and cross and plan to give 2 units of blood today. In addition aggressive rehydration will be provided in hopes that her kidney function will improve. She reports that she is A- blood type. 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 aspirin (Verified Adverse Reaction, Unknown, STOMACH ULCERS, 07/19/17) Past Eplrsmy-Iwxenz-Sepoda Hx Patient Social History Alcohol Use: Denies Use Recreational Drug Use: No Smoking Status: Never a Smoker Recent Foreign Travel: No Contact w/other who traveled: No Recent Hopitalizations: Yes (ER VISITS) Recent Infectious Disease Expo: No Immunizations Up To Date Date of Pneumonia Vaccine: Jul 02, 2014 Date of Influenza Vaccine: Jun 29, 2014 Surgeries Yes (Bilateral knees, CYST REMOVAL FROM BACK; VENTRAL HERNIA REPAIR AND SONIYA / RELEASE OF SMALL BOWEL OBSTRUCTION. ) Abdominal, Appendectomy, Gallbladder, Orthopedic Respiratory Yes Cardiovascular Yes Hypertension Neurological No Reproductive System Hx Reproductive Disorders: Yes (RH(-) X2 BABIES THAT PASSED ONE STILLBIRTH AND ONE PASSED 24HRS OLD) Sexually Transmitted Disease: No HIV/AIDS: No Female Reproductive Disorders: Denies MEDICINE MAN History: Menopausal Genitourinary Yes Kidney Infection, Bladder Infection Gastrointestinal Yes (Hernia; diverticulitis; stomach ulcers) Abdominal Hernia, Gastrointestinal Bleed, Chronic Constipation, Diverticulosis, Hemorrhoids, Ulcer Musculoskeletal Yes Arthritis, Fractures Endocrine History of Endocrine Disorders: No HEENT History of HEENT Disorders: Yes HEENT Disorders: Cataract, Macular Degeneration Loss of Vision: Bilateral Hearing Impairment: Denies Cancer No Psychosocial History of Psychiatric Problem: Yes Behavioral Health Disorders: Anxiety, Depression Integumentary History of Skin or Integumenta: No Blood Transfusions History of Blood Disorders: No Adverse Reaction to a Blood Tr: No Family Medical History Significant Family History: No Pertinent Family Hx Family Hx: Cancer 03 MOTHER (LUNG CANCER) Cataract 03 MOTHER (MACULAR DEGENERATION) Family history: Arthritis Family history: Hypertension 09 BROTHER (OLDEST BROTHER) Visual impairment 03 MOTHER (CATARACTS AND MACULAR DEGENERATION) No Family History of: Abdominal aortic aneurysm [place]'s disease Alcoholism Aphasia Cancer of colon Chest pain Congenital heart disease Congestive heart failure Cystic fibrosis Dementia Dysphagia Family history: Allergy Family history: Alzheimer's disease Family history: Asthma Family history: Breast disease Family history: Cardiovascular disease Family history: Coronary thrombosis Family history: Diabetes mellitus Family history: Gastrointestinal disease Family history: Glaucoma Family history: Osteoporosis Family history: Thyroid disorder Headache Hearing loss Heart disease Hereditary disease History of - anemia History of - disorder History of - respiratory disease History of drug abuse Human immunodeficiency virus (HIV) seropositivity Hypercholesterolemia Infertile Kidney disease Malignant neoplasm of lung Myocardial infarction Parkinson's disease Prostate cancer Psychotic disorder Seizure disorder Stroke Tuberculosis Review of Systems Constitutional: see HPI, malaise, weakness, weight loss EENTM: no symptoms reported Respiratory: no symptoms reported Cardiovascular: no symptoms reported Gastrointestinal: loss of appetite Genitourinary: decreased output, dysuria Musculoskeletal: muscle weakness Skin: no symptoms reported Psychiatric/Neurological: Other (lethargy) Physical Exam Physical Exam Vital Signs Vital Sign - Last 12Hours 07/19/17 07/19/17 09:20 11:38 Temp 96.4 Pulse 78 Resp 16 B/P (MAP) 97/33 Pulse Ox 96 O2 Delivery Room Air Capillary Refill : Less Than 3 Seconds General Appearance: Other (we had a pleasant elderly white female with vague history giving possibilities) Eyes: Bilateral Eye Normal Inspection HEENT: Normal ENT Inspection Neck: Normal Inspection Respiratory: Normal Breath Sounds Cardiovascular: Regular Rate, Rhythm, No Edema, No Gallop, No JVD, No Murmur, Normal Peripheral Pulses Gastrointestinal: Normal Bowel Sounds, No Organomegaly, No Pulsatile Mass, Non Tender, Soft Back: Normal Inspection, No CVA Tenderness, No Vertebral Tenderness Extremity: Other (considerable edema of the distal third of the lower legs including the malleoli and feet. She states that she sleeps upright in a chair with feet hanging down) Neurologic/Psychiatric: Alert, No Motor/Sensory Deficits, Normal Mood/Affect, inspector technician II-XII Norm as Tested, Other (confusion relative to the date and time line of illness) Skin: Normal Color, Warm/Dry Lymphatic: No Adenopathy Results Results/Procedures Lab Laboratory Tests 07/19/17 09:40 Assessment/Plan Admission Diagnosis 1.anemia with history of GI bleeding. 2.renal failure suspect dehydration as a co-factor. In addition recent Macrodantin may be a factor. Assessment and Plan Aggressive rehydration. We will plan to transfuse with 2 units of packed red blood cells today. Given the A- status the availability may be delayed. She has elected a DO NOT RESUSCITATE status. Given that it would appear consideration of dialysis not appropriate Clinical Quality Measures DVT/VTE Risk/Contraindication: Contraindications-Pharm: Other *list below* WISAM COLBERT MD Jul 19, 2017 13:24
[2017-07-19] MEDS ORDERED: HC A30CR RC (14:04)
[2017-07-19] MEDS ORDERED: FURO40TA4 PO (14:04)
[2017-07-19] MEDS ORDERED: POLY255P PO (14:04)
[2017-07-19] MEDS ORDERED: LEVO5TAB12 PO (14:04)
[2017-07-19] MEDS ORDERED: OMG1KC PO (14:04)
[2017-07-19] MEDS ORDERED: CALC1TAB29 PO (14:04)
[2017-07-19] MEDS ORDERED: ACET325T38 PO (14:04)
[2017-07-19] MEDS ORDERED: MELO7.5T46 PO (14:04)
[2017-07-19] MEDS ORDERED: ACET-2429 PO (14:04)
[2017-07-19] MEDS ORDERED: BETA1TAB15 PO (14:04)
[2017-07-19] MEDS ORDERED: MULT-166 PO (14:04)
[2017-07-19] MEDS ORDERED: LISI-552 PO (14:04)
[2017-07-19] MEDS ORDERED: PSEU-137 PO (14:04)
[2017-07-19] MEDS ORDERED: SERT50TA9 PO (14:04)
[2017-07-19] MEDS ORDERED: SUCR1TAB PO (14:04)
[2017-07-19] MEDS ORDERED: POTA20TA15 PO (14:04)
[2017-07-19] MEDS ORDERED: CEPH250T PO (14:04)
[2017-07-19] MEDS ORDERED: FAMO20TA5 PO (14:04)
[2017-07-19] MEDS ORDERED: ONDA4TAB10 PO (14:04)
[2017-07-19] MEDS ORDERED: BENZ100C23 PO (14:04)
[2017-07-19] MEDS ORDERED: ESOM20CA37 PO (14:04)
[2017-07-19] MEDS ORDERED: CRAN200C PO (14:04)
[2017-07-19] MEDS ORDERED: DIPH25CA79 PO (14:04)
--- NOTE | 2017-07-19 16:30 | Consultation ---
History of Present Illness History of Present Illness Patient Consulted On(christin/time) 07/19/17 16:24 Time Seen by Provider: 15:43 History of Present Illness Surgery asked to consult regarding GI bleed and anemia. HPI: per Medicine -- THE PATIENT IS AN 82-YEAR-OLD WHITE FEMALE ADMITTED FROM THE EMERGENCY ROOM WHERE SHE PRESENTED WITH a chief complaint of generalized weakness. She had been in the emergency room on 07/03 with a three-day history of rectal bleeding. Her hemoglobin was 10.6 at that point in time. Physical exam showed a heme positive stool and evident hemorrhoids. She returned here on 07/15 complaining of burning and dysuria. She gave a history of frequent urinary tract infections which were difficult to treat. UA showed marginal evidence of urinary tract infection and a specific gravity of 1.025. Her creatinine was noted to be 5.12 and her BUN 71. She was placed on Macrodantin. She continued to wane and was seen at Dr. Garcia's office this morning with complaints of poor appetite and fluid intake and rather minimum urinary output. Laboratory today showed her to have a hemoglobin of 8.1. The creatinine had climbed from 5.1 to 27.17. BUN had climbed from 71-82. She was therefore admitted for rehydration and blood transfusion as necessary. Given her age and infirmity she is elected a DO NOT RESUSCITATE status. She was not willing to consider the possibility of dialysis at this time. She appeared confused to me and was not able to give a very good timeline about the onset of this illness. In addition she was unable to confirm how much rectal bleeding had been noted. The plan as discussed with Dr. Valdes from the emergency room was to type and cross and plan to give 2 units of blood today. In addition aggressive rehydration will be provided in hopes that her kidney function will improve. She reports that she is A- blood type. 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 State their mom has been disoriented lately; but also that way before any of the confusion she stated she did not want major surgery done. She actually was able to reiterate that to me today. Allergies and Home Medications Allergies Coded Allergies: Sulfa (Sulfonamide Antibiotics) (Verified Allergy, Severe, RASH, 07/19/17) codeine (Verified Adverse Reaction, Mild, NAUSEA, 07/19/17) PATIENT REPORTS TAKING AT 16 YEARS OF AGE AND CAUSING NAUSEA. aspirin (Verified Adverse Reaction, Unknown, STOMACH ULCERS, 07/19/17) Home Medications Acetaminophen 650 Mg Tablet.er, 650 MG PO Q4H PRN for PAIN-MILD, (Reported) Acetaminophen 325 Mg Tablet, 650 MG PO Q4H PRN for MILD PAINP; ELEVATED TEMP, ( Reported) TAKES 2 (325MG) TABLETS Benzonatate 100 Mg Capsule, 200 MG PO Q4H PRN for COUGH, (Reported) TAKES 2 (100MG) CAPSULES Calcium Carbonate/Vitamin D3 1 Each Tablet, 2 TAB PO DAILY, (Reported) Cephalexin 250 Mg Tablet, 250 MG PO DAILY, (Reported) Cranberry Extract 200 Mg Capsule, 200 MG PO DAILY, (Reported) Diphenhydramine HCl 25 Mg Capsule, 25 MG PO Q6H PRN for ITCHING, (Reported) Esomeprazole Magnesium 20 Mg Capsule.dr, 20 MG PO DAILY, (Reported) Famotidine 20 Mg Tablet, 20 MG PO DAILY, (Reported) Furosemide 40 Mg Tablet, 40 MG PO DAILY, (Reported) Hydrocortisone/Pramoxine 30 Gm Cream.appl, RC Q6H PRN for CONSTIPATION, ( Reported) Levocetirizine Dihydrochloride 5 Mg Tablet, 5 MG PO DAILY, (Reported) Lisinopril 20 Mg Tablet, 20 MG PO DAILY, (Reported) Multivitamin with Minerals 1 Each Tablet, 1 TAB PO DAILY, (Reported) [place] 3 Polyunsat Fatty Acids 1,000 Mg Cap, 1,000 MG PO BID, (Reported) Ondansetron HCl 4 Mg Tablet, 4 MG PO Q8H PRN for NAUSEA/VOMITING-1ST LINE, ( Reported) Polyethylene Glycol 3350 255 Gm Powder, 17 GM PO DAILY PRN for CONSTIPATION-2ND LINE, (Reported) Potassium Chloride 20 Meq Tab.er.prt, 20 MEQ PO DAILY, (Reported) Pseudoephedrine HCl 30 Mg Tablet, 30 MG PO Q4H PRN for CONGESTION, (Reported) Sertraline HCl 50 Mg Tablet, 50 MG PO DAILY, (Reported) Sucralfate 1 Gm Tablet, 1 GM PO QID, (Reported) Vit A/Vit C/Vit E/Zinc/Copper 1 Each Tablet, 2 TAB PO DAILY, (Reported) Past Cnbdyeo-Ojcsal-Dpnlpm Hx Patient Social History Alcohol Use: Denies Use Recreational Drug Use: No Smoking Status: Never a Smoker Recent Foreign Travel: No Contact w/Someone Who Travel: No Recent Infectious Disease Expo: No Recent Hopitalizations: Yes (ER VISITS) Physical Abuse Screen: No Sexual Abuse: No Immunizations Up To Date Date of Pneumonia Vaccine: Jul 02, 2014 Date of Influenza Vaccine: Jun 28, 2017 Seasonal Allergies Seasonal Allergies: No Surgeries History of Surgeries: Yes Surgeries: Abdominal, Appendectomy, Gallbladder, Orthopedic Respiratory History of Respiratory Disorde: Yes Respiratory Disorders: Chronic Bronchitis Cardiovascular History of Cardiac Disorders: Yes Cardiac Disorders: Hypertension Neurological History of Neurological Disord: No Reproductive System Hx Reproductive Disorders: Yes (RH(-) X2 BABIES THAT PASSED ONE STILLBIRTH AND ONE PASSED 24HRS OLD) Sexually Transmitted Disease: No HIV/AIDS: No Female Reproductive Disorders: Denies ELECTRONICS LEAD History: Menopausal Genitourinary History of Genitourinary Disor: Yes (UTI'S , RENAL FAILURE ) Gastrointestinal History of Gastrointestinal Di: Yes (Hernia; diverticulitis; stomach ulcers) Gastrointestinal Disorders: Abdominal Hernia, Gastrointestinal Bleed, Chronic Constipation, Diverticulosis, Hemorrhoids, Ulcer Musculoskeletal History of Musculoskeletal Dis: Yes (LEFT HAND DEFECT) Musculoskeletal Disorders: Arthritis, Fractures Endocrine History of Endocrine Disorders: No HEENT History of HEENT Disorders: Yes HEENT Disorders: Cataract, Macular Degeneration Loss of Vision: Bilateral Hearing Impairment: Denies Cancer History of Cancer: No Psychosocial History of Psychiatric Problem: Yes Behavioral Health Disorders: Anxiety, Depression Integumentary History of Skin or Integumenta: No Blood Transfusions History of Blood Disorders: No Adverse Reaction to a Blood Tr: No Family Medical History Significant Family History: Cancer Family Medial History: Cancer 03 MOTHER (LUNG CANCER) Cataract 03 MOTHER (MACULAR DEGENERATION) Diabetes mellitus 03 MOTHER Family history: Arthritis Family history: Hypertension 09 BROTHER (OLDEST BROTHER) Visual impairment 03 MOTHER (CATARACTS AND MACULAR DEGENERATION) Review of Systems-General ROS-Unable to Obtain: obtained from chart and family Constitutional: malaise, weakness, weight loss EENTM: hearing loss, vision loss, No epistaxis Respiratory: cough, dyspnea on exertion Cardiovascular: No chest pain, No edema Gastrointestinal: No abdominal pain, diarrhea, melena Genitourinary: decreased output, No dysuria, No hematuria, incontinence Musculoskeletal: joint pain, joint swelling, muscle stiffness Physical Exam-General Problems Physical Exam Vital Signs Vital Sign - Last 12Hours 07/19/17 07/19/17 09:20 11:38 Temp 96.4 Pulse 78 Resp 16 B/P (MAP) 97/33 Pulse Ox 96 O2 Delivery Room Air Capillary Refill : Less Than 3 Seconds General Appearance: WD/WN, no apparent distress Eyes: Bilateral Eye PERRL, Bilateral Eye EOMI HEENT: pharynx normal, No scleral icterus (R), No scleral icterus (L), No pale conjunctivae (R), No pale conjunctivae (L) Respiratory: normal breath sounds, no respiratory distress, no accessory muscle use Cardiovascular: regular rate, rhythm, no murmur Gastrointestinal: normal bowel sounds, soft, no organomegaly, no pulsatile mass Rectal: deferred Neurologic/Psychiatric: alert, disoriented x 3 Skin: normal color, warm/dry Data Review Labs Laboratory Tests 07/19/17 09:20: Urine Color OTHERH, Urine Clarity VERY CLOUDYH, Urine pH 8, Urine Specific [place] 1.015L, Urine Protein 2+H, Urine Glucose (UA) NEGATIVE, Urine Ketones 1+ H, Urine Nitrite POSITIVEH, Urine Bilirubin 1+H, Urine Urobilinogen 1, Urine Leukocyte Esterase 3+H, Urine RBC (Auto) 3+H, Urine RBC 0-2, Urine WBC 10-25H, Urine Squamous Epithelial Cells 0-2, Urine Crystals NONE, Urine Bacteria MODERATEH, Urine Casts NONE, Urine Mucus NEGATIVE, Urine Culture Indicated YES 07/19/17 09:40: White Blood Count 7.9, Red Blood Count 2.53L, Hemoglobin 8.1L, Hematocrit 25L, Mean Corpuscular Volume 98, Mean Corpuscular Hemoglobin 32, Mean Corpuscular Hemoglobin Concent 33, Red Cell Distribution Width 17.1H, Platelet Count 236, Mean Platelet Volume 10.0, Neutrophils (%) (Auto) 77H, Lymphocytes (%) (Auto) 9L , Monocytes (%) (Auto) 9, Eosinophils (%) (Auto) 5, Basophils (%) (Auto) 1, Neutrophils # (Auto) 6.0, Lymphocytes # (Auto) 0.7L, Monocytes # (Auto) 0.7, Eosinophils # (Auto) 0.4H, Basophils # (Auto) 0.0, Sodium Level 134L, Potassium Level 4.6, Chloride Level 112H, Carbon Dioxide Level 8*L, Anion Gap 14, Blood Urea Nitrogen 82H, Creatinine 7.17#H, Estimat Glomerular Filtration Rate 5, BUN/ Creatinine Ratio 11, Glucose Level 72, Lactic Acid Level < 0.17L, Calcium Level 8.5, Total Bilirubin 0.3, Aspartate Amino Transf (AST/SGOT) 11, Alanine Aminotransferase (ALT/SGPT) 17, Alkaline Phosphatase 63, Total Protein 5.1L, Albumin 2.6L 07/19/17 09:45: T[facility] [place] Testing 4.08 Assessment/Plan Assessment/Plan Assessment/Plan 1. GI bleed - unknown if this is upper or lower source 2. Anemia 3. Renal Failure - acute on chronic I had long discussion with daughters; they think last colonoscopy and EGD were over 10 yrs ago and believe she has "ulcers all over her stomach; which she is taking Carafate for." They also talked about the fact that their mother would like to be DNR and doesn't want any major surgery. In addition, they don't think she wants a colonoscopy either (she has refused in past). I told them that this is the pt's choice and just because she is confused now is not a good reason to go against something she has said in the past. I believe it is an ok option to keep pt comfortable and support with meds or even blood transfusions. I will be happy to resee the pt if things change. However, I also think she is a very poor surgical candidate with her renal failure and other medical problems. I would recommend no surgery; especially if that is the pt's wishes. Thank you for this consult. Clinical Quality Measures DVT/VTE Risk/Contraindication: Risk Factor Score Per Nursin RFS Level Per Nursing on Admit: 4+=Very High Contraindications-Pharm: Other *list below* ALBAN HERNANDEZ DO Jul 19, 2017 16:29
[2017-07-19 18:54] LABS: MEAN PLATELET VOLUME 9.8 FL (7.4-10.4); RED BLOOD COUNT 2.06 10^6/uL (4.35-5.85); RED CELL DISTRIBUTION WIDTH 17.2 % (10.0-14.5); WHITE BLOOD COUNT 5.2 10^3/uL (4.3-11.0)
[2017-07-19] MEDS: PANTOPRAZOLE 40 MG/10 ML (PROTONIX) VIAL IV SCH (20:23)
[2017-07-19 21:39] LABS: BASOPHILS % (AUTO) 0 % (0-10); EOSINOPHILS # (AUTO) 0.4 10^3/uL (0.0-0.3); EOSINOPHILS % (AUTO) 4 % (0-10); LYMPHOCYTES # (AUTO) 0.8 X 10^3 (1.0-4.0); LYMPHOCYTES % (AUTO) 10 % (12-44); MEAN CORPUSCULAR HEMOGLOBIN 31 PG (25-34); MEAN CORPUSCULAR HGB CONC 34 G/DL (32-36); MEAN CORPUSCULAR VOLUME 92 FL (80-99); MEAN PLATELET VOLUME 9.2 FL (7.4-10.4); MONOCYTES # (AUTO) 0.8 X 10^3 (0.0-1.0); MONOCYTES % (AUTO) 10 % (0-12); NEUTROPHILS % (AUTO) 75 % (42-75); PLATELET COUNT 196 10^3/uL (130-400); RED BLOOD COUNT 3.15 10^6/uL (4.35-5.85); RED CELL DISTRIBUTION WIDTH 17.8 % (10.0-14.5)
[2017-07-20 00:25] VITALS: BP 114/55
[2017-07-20] MEDS: LACTATED RINGERS 1,000 ML IV SCH ×3 (00:29→14:11)
[2017-07-20] MEDS ORDERED: ACETAMINOPHEN 325 MG TABLET/CAPLET (TYLENOL) ONE (02:55)
[2017-07-20] MEDS ORDERED: ACETAMINOPHEN 500 MG TAB (TYLENOL) PO PRN (03:00)
[2017-07-20 04:13] VITALS: BP 123/58
[2017-07-20 06:44] LABS: EOSINOPHILS % (AUTO) 6 % (0-10); LYMPHOCYTES % (AUTO) 7 % (12-44); MEAN CORPUSCULAR HEMOGLOBIN 30 PG (25-34); MEAN CORPUSCULAR HGB CONC 33 G/DL (32-36); MEAN CORPUSCULAR VOLUME 93 FL (80-99); MEAN PLATELET VOLUME 9.9 FL (7.4-10.4); MONOCYTES % (AUTO) 9 % (0-12); NEUTROPHILS % (AUTO) 78 % (42-75); PLATELET COUNT 191 10^3/uL (130-400); RED BLOOD COUNT 3.12 10^6/uL (4.35-5.85); RED CELL DISTRIBUTION WIDTH 18.2 % (10.0-14.5); WHITE BLOOD COUNT 7.1 10^3/uL (4.3-11.0)
[2017-07-20 06:45] LABS: BASOPHILS % (AUTO) 0 % (0-10); EOSINOPHILS # (AUTO) 0.4 10^3/uL (0.0-0.3); LYMPHOCYTES # (AUTO) 0.5 X 10^3 (1.0-4.0); MONOCYTES # (AUTO) 0.7 X 10^3 (0.0-1.0); NEUTROPHILS # (AUTO) 5.6 X 10^3 (1.8-7.8)
[2017-07-20 07:00] LABS: ANISOCYTOSIS SLIGHT; BAND NEUTROPHILS 0 %; BASOPHILS % (MANUAL) 0 %; CRENATED RBC MODERATE; EOSINOPHILS % (MANUAL) 3 %; LYMPHOCYTES % (MANUAL) 6 %; NEUTROPHILS % (MANUAL) 88 %; POIKILOCYTOSIS SLIGHT; POLYCHROMASIA SLIGHT
[2017-07-20 07:05] LABS: ALBUMIN 2.3 GM/DL (3.2-4.5); BILIRUBIN,TOTAL 0.4 MG/DL (0.1-1.0); CREATININE SERUM 6.42 MG/DL (0.60-1.30); POTASSIUM 4.6 MMOL/L (3.6-5.0); TOTAL PROTEIN 4.5 GM/DL (6.4-8.2)
[2017-07-20 08:00] VITALS: BP 122/58
[2017-07-20] MEDS ORDERED: cefTRIAXone INJECTION 1,000 MG in NS (IVPB) 50 ML IV SCH (09:00)
[2017-07-20] MEDS: PANTOPRAZOLE 40 MG/10 ML (PROTONIX) VIAL IV SCH ×2 (09:03→21:08)
--- NOTE | 2017-07-20 10:52 | Progress Note-Hospitalist ---
Standard Progress Note Progress Notes/Assess & Plan Date Seen 07/20/17 Time Seen by Provider: 10:45 Diagnosis 1.anemia with history of GI bleeding. 2.renal failure suspect dehydration as a co-factor. In addition recent Macrodantin may be a factor. Assess & Plan/Chief Complaint The patient appears comfortable but somnolent. Accompanied by Rosibel Adrian from [facility], a detailed discussion about the disease process and the options was presented to the daughter. She was inclined to believe that they would decline kidney dialysis but as she is visiting from [place] and her younger sister is the local care provider final decision will be deferred. It is expected that the daughter will arrive after 1300 when she finishes her work shift. The patient had 2 units of packed red blood cells which raised her hemoglobin from 6.3-9.5. A total of 4 L of IV fluids decreased her creatinine from 7.17- 6.42. Her urine output was 125 total for the period since admission. Physical exam: The patient is sleeping and looks comfortable. Her tongue is dry. She rouses easily to my voice but does not answer questions. Lungs are clear to auscultation. Respirations are shallow. CV shows the a slightly irregular rhythm. Abdomen is modestly but generally tender to palpation. Bowel sounds are hypoactive. Extremities show increase in pedal edema as compared to yesterday. Impression: Acute renal failure. 2.anemia with history of GI bleeding Plan: Reduce IV fluid rate. 2.DC telemetry and reduce IV fluids. Labs Laboratory Tests 07/19/17 09:40 07/19/17 18:40 07/19/17 21:30 07/20/17 05:41 BRANDEE COLBERT MD Jul 20, 2017 10:52
[2017-07-20 12:00] VITALS: BP 110/78
[2017-07-20] MEDS ORDERED: ACETAMINOPHEN 325 MG TABLET/CAPLET (TYLENOL) PO PRN (15:00)
[2017-07-20 15:26] VITALS: BP 113/75
[2017-07-20] MEDS: morphine INJ 4 MG/ML 1 ML (VIAL/SYRINGE) IVP PRN ×3 (15:41→22:23)
[2017-07-20 19:05] VITALS: BP 109/57
[2017-07-21] VITALS: BP 101/51
[2017-07-21 04:05] VITALS: BP 126/55
[2017-07-21 08:00] VITALS: BP 110/53
[2017-07-21] MEDS: PANTOPRAZOLE 40 MG/10 ML (PROTONIX) VIAL IV SCH (08:40)
[2017-07-21] MEDS ORDERED: LORA2ORA PO (10:54)
[2017-07-21] MEDS ORDERED: MORP100S3 PO (10:54)
--- NOTE | 2017-07-21 10:56 | Discharge Summary-Hospitalist ---
Diagnosis/Chief Complaint Date of Admission Jul 19, 2017 at 10:35 Date of Discharge Admission Diagnosis 1.anemia with history of GI bleeding. 2.renal failure suspect dehydration as a co-factor. In addition recent Macrodantin may be a factor. Discharge Diagnosis End stage renal failure resulting in end of life status signed up for [facility] Discharge Summary Discharge Physical Examination Allergies: Coded Allergies: Sulfa (Sulfonamide Antibiotics) (Verified Allergy, Severe, RASH, 07/19/17) codeine (Verified Adverse Reaction, Mild, NAUSEA, 07/19/17) PATIENT REPORTS TAKING AT 16 YEARS OF AGE AND CAUSING NAUSEA. aspirin (Verified Adverse Reaction, Unknown, STOMACH ULCERS, 07/19/17) Vitals & I&Os Vital Signs Date Time Temp Pulse Resp B/P (MAP) Pulse Ox O2 Delivery O2 Flow Rate FiO2 07/21/17 08:00 97.2 67 20 110/53 97 Room Air Hospital Course Patient was admitted for acute renal failure with creatinine of 7 with extremely poor prognosis due to many factors causing renal failure in addition to dehydration. In-depth conversation ensued with hospitalist service and social work and palliative care and she was deemed an end-of-life status patient in need of hospice admission to the care home and was discharged in an uncomplicated fashion on hospice medication for comfort care and she will be admitted to the facility with respite care. Labs (last 24 hrs) Laboratory Tests 07/20/17 14:00: Stool Occult Blood Immunoassay NEGATIVE Microbiology 07/19/17 Blood Culture - Preliminary, Resulted No growth 07/19/17 Urine Culture - Preliminary, Resulted Proteus Mirabilis Enterococcus Faecalis Yeast Species Gram Negative Cristian Discharge Home Medications: Active Scripts Active Lorazepam Intensol (Lorazepam) 2 Mg/1 Ml Oral.conc 1 Mg PO Q4H Morphine Sulfate Concentrate 20mg/ml (Morphine Sulfate) 100 Mg/5 Ml Solution 5 Mg PO Q2H PRN Reported Sertraline HCl 50 Mg Tablet 50 Mg PO DAILY Levocetirizine Dihydrochloride 5 Mg Tablet 5 Mg PO DAILY Tylenol (Acetaminophen) 325 Mg Tablet 650 Mg PO Q4H PRN TAKES 2 (325MG) TABLETS Benzonatate 100 Mg Capsule 200 Mg PO Q4H PRN TAKES 2 (100MG) CAPSULES Sudafed (Pseudoephedrine HCl) 30 Mg Tablet 30 Mg PO Q4H PRN Lisinopril 20 Mg Tablet 20 Mg PO DAILY Esomeprazole Magnesium 20 Mg Capsule.dr 20 Mg PO DAILY Polyethylene Glycol 3350 255 Gm Powder 17 Gm PO DAILY PRN Potassium Chloride 20 Meq Tab.er.prt 20 Meq PO DAILY Furosemide 40 Mg Tablet 40 Mg PO DAILY Famotidine 20 Mg Tablet 20 Mg PO DAILY Cephalexin 250 Mg Tablet 250 Mg PO DAILY Sucralfate 1 Gm Tablet 1 Gm PO QID Benadryl (Diphenhydramine HCl) 25 Mg Capsule 25 Mg PO Q6H PRN Analpram Hc 2.5% Cream (Hydrocortisone/Pramoxine) 30 Gm Cream.appl RC Q6H PRN Cranberry (Cranberry Extract) 200 Mg Capsule 200 Mg PO DAILY Fish Oil 1,000 mg Capsule ([place] 3 Polyunsat Fatty Acids) 1,000 Mg Cap 1,000 Mg PO BID Ondansetron HCl 4 Mg Tablet 4 Mg PO Q8H PRN Acetaminophen 8 Hour (Acetaminophen) 650 Mg Tablet.er 650 Mg PO Q4H PRN Multivitamins with Minerals (Multivitamin with Minerals) 1 Each Tablet 1 Tab PO DAILY Os-Perez 500+D3 Caplet (Calcium Carbonate/Vitamin D3) 1 Each Tablet 2 Tab PO DAILY Preservision Areds Tablet (Vit A/Vit C/Vit E/Zinc/Copper) 1 Each Tablet 2 Tab PO DAILY Instructions to patient/family Please see electronic discharge instructions given to patient. Clinical Quality Measures DVT/VTE Risk/Contraindication: Risk Factor Score Per Nursin RFS Level Per Nursing on Admit: 4+=Very High Contraindications-Pharm: Other *list below* NATALIIA DELGADO DO Jul 21, 2017 10:56
[2017-07-21] MEDS: morphine INJ 4 MG/ML 1 ML (VIAL/SYRINGE) IVP PRN ×2 (14:22→16:07)
[2017-07-21 18:35] VITALS: BP 110/53
== END 2017-07-21 18:43 | disposition hospice, inpatient (51) | DRG 377 ==
LOC: EDUNIT# 08:44 → ER 08:46 → 4TH 10:35
PROVIDERS: ADMIT Internal Medicine; ATTEND Internal Medicine
DX: K92.2 Gastrointestinal hemorrhage, unspecified (principal); I12.0 Hypertensive chronic kidney disease with stage 5 chronic kidney disease or end stage renal disease; N18.6 End stage renal disease; N17.9 Acute kidney failure, unspecified; Z66 Do not resuscitate; D64.9 Anemia, unspecified; E86.0 Dehydration; F32.9 Major depressive disorder, single episode, unspecified; F41.9 Anxiety disorder, unspecified
CPT/HCPCS: 36415; 71010; 80053; 81000; 82274; 83605; 84443; 85007; 85025; 85027; 86850; 86870; 86900; 86901; 86920; 86922; 87040; 87077; 87088; 87186; 93005; 93041; 96365; 96375